=== PATIENT | female | born 1940 | race Caucasian/White ===

== ENCOUNTER → 2017-09-03 | Outpatient (CLI) | payer MEDICARE ==
[~2017-09-03] MED LIST: ASPI-715 PO; CALC-547 PO; EYE DROPS; FIBER THERAPY; OMEG-84 PO; [UNRECOGNIZED DRUG - OTHER]
--- NOTE | 2017-09-03 17:55 | RADIOLOGY IMAGING REPORT ---
FACILITY: [facility] PATIENT NAME: COURTNEY FLANAGAN : [id number] MR: [id number] V: [id number] EXAM DATE: [id number] ORDERING PHYSICIAN: MELINDA DOHERTY TECHNOLOGIST: Rossi Flores PROCEDURE:BILATERAL DIGITAL SCREENING MAMMOGRAM WITH CAD ASSISTED INTERPRETATION & 3D TOMOSYNTHESIS COMPARISON:Prior mammograms 08/30/16, 08/10/15, 07/20/14, 07/07/13, 07/01/13, 06/24/12. INDICATIONS:SCREENING FINDINGS: Moderately heterogeneous fibroglandular tissue is seen throughout the breasts. The parenchymal pattern has remained stable allowing for difference in mammographic technique & patient positioning. There is no evidence of malignant appearing mass, malignant appearing calcifications or other secondary sign of malignancy in either breast. DIAGNOSTIC CATEGORY 1--NEGATIVE. RECOMMENDATIONS: ROUTINE MAMMOGRAM AND CLINICAL EVALUATION. IMPRESSION: BIRADS 1: Negative. No significant abnormality is seen. Dictated by: Cecilia Pedraza M.D. on 09/03/2017 at 11:04 Transcribed by: HARSHAD on 09/03/2017 at 11:32 Approved by: Cecilia Pedraza M.D. on 09/03/2017 at 17:54 [facility]
== END ==
LOC: MAMO 01:31
PROVIDERS: ATTEND Physician Assistant
DX: Z12.31 Encounter for screening mammogram for malignant neoplasm of breast (principal)
CPT/HCPCS: 77063; 77067

== ENCOUNTER → 2018-09-05 | Outpatient (CLI) | payer MEDICARE ==
--- NOTE | 2018-09-05 10:33 | RADIOLOGY IMAGING REPORT ---
[place] [facility] [place] NAME: Veena Galeas : 1940 MR: [id number] V: [id number] EXAM DATE: ORDERING PHYSICIAN: MELINDA DOHERTY TECHNOLOGIST: Location: [facility] [place] Patient: Veena Galeas : 1940 Visit/Account:[id number] Date of Sevice: 09/05/2018 DEXA Scan Clinical history: Postmenopausal screening. Comparison: DEXA scan from 02/15/2016. LUMBAR SPINE: The bone mineral density (BMD) measured from L1-L4 correlates with a Z-score of 3.3 and a T-score of 1.8 which is Normal as defined by the World Health Organization. The corresponding risk of fracture in the lumbar spine is Not increased compared with a young adult reference population. This value lopes s increase by 4.2 % since the prior study. More than 5% change is considered significant. HIP: Bone mineral density (BMD) measured in the LEFT total hip region correlates with a Z-score 1.5 and a T-score of -0.2 which is normal as defined by the World Health Organization. The corresponding risk of fracture in the hip is Not i ncreased compared to a young adult reference population. This value has increased by 0.2 % since the prior study. More than 5% change is considered significant. T score left femoral neck -0.4 Bone mineral density (BMD) measured in the Femoral Neck region measures 0.977 g/cm?. IMPRESSION: 1. Lumbar spine: Normal. There has been 4.2% increase in the bone mineral density since the previou s exam. 2. Left Total Hip: Normal. There has been 0.2% increase in the bone mineral density since the previ ous exam. 3. Femoral Neck: Bone Mineral Density is 0.977 g/cm? The next DEXA scan of this patient should include the following sites: L1-L4 and the left hip. FRAX? WHO Fracture Risk Assessment Tool link: <http://www.shef.ac.uk/FRAX/tool.jsp?locationValue=9> PLEASE NOTE: 1) The World Health Organization defines low BMD as follows: T-score Normal > -1 Osteopenia < -1 and > -2.5 Osteoporosis < -2.5 without fractures Established osteoporosis < -2.5 with fractures 2) In general, you may wish to consider: Diagnosis Treatment Follow-up DEXA Normal BMD Prevention 2-3 years Osteopenia Prevention/therapy 1-2 years Osteoporosis Therapy Yearly 3) Fracture risk estimated from the T-score is more accurate for vertebral fractures (often spontane ous) than for hip fractures. Report Dictated By: Cecilia Pedraza MD at 09/05/2018 10:13 AM Report E-Signed By: Cecilia Pedraza MD at 09/05/2018 10:27 AM WSN:[id number]
--- NOTE | 2018-09-05 13:55 | RADIOLOGY IMAGING REPORT ---
FACILITY: [facility] PATIENT NAME: COURTNEY FLANAGAN : [id number] MR: [id number] V: [id number] EXAM DATE: ORDERING PHYSICIAN: MELINDA DOHERTY TECHNOLOGIST: Ashley Velásquez PROCEDURE: BILATERAL DIGITAL SCREENING MAMMOGRAM WITH CAD ASSISTED INTERPRETATION & 3D TOMOSYNTHESIS. REASON FOR STUDY: Screening. FAMILY HISTORY OF BREAST CANCER: 2 Sisters & 3 Nieces. BREAST PROCEDURES/TREATMENTS: Benign surgical biopsy of the Left breast. COMPARISON: 09/03/17, 08/10/15, 07/20/14, 07/07/13, 07/01/13. VIEWS OBTAINED: 2D & 3D full field CC & MLO. BREAST DENSITY: The breasts are heterogeneously dense which can obscure small masses. MAMMOGRAM FINDINGS: The parenchymal pattern has remained stable allowing for difference in mammographic technique & patient positioning. IMPRESSION: BIRADS 1: Negative. DIAGNOSTIC CATEGORY 1--NEGATIVE. RECOMMENDATIONS: ROUTINE MAMMOGRAM AND CLINICAL EVALUATION. Dictated by: Cecilia Pedraza M.D. on 09/05/2018 at 11:15 Transcribed by: HARSHAD on 09/05/2018 at 11:23 Approved by: Cecilia Pedraza M.D. on 09/05/2018 at 13:52 [facility]
== END ==
LOC: MAMO 00:52
PROVIDERS: ATTEND Physician Assistant
DX: Z12.31 Encounter for screening mammogram for malignant neoplasm of breast (principal); N95.1 Menopausal and female climacteric states
CPT/HCPCS: 77063; 77067; 77080